=== PATIENT | female | born 1985 | race Caucasian/White ===

== ENCOUNTER 2020-05-20 10:01 | Emergency (ER) | payer MEDICAID, SELFPAY ==
--- NOTE | 2020-05-20 10:12 | XRR_ITS ---
PROCEDURE INFORMATION: Exam: XR Left Ankle Exam date and time: 05/20/2020 10:48 AM Age: 35 years old Clinical indication: Injury or trauma; Fall; Blunt trauma; Ankle; Bilateral; Injury date: 05/19/20; Additional info: Pain TECHNIQUE: Imaging protocol: XR Left ankle. Views: 3 or more views. COMPARISON: No relevant prior studies available. FINDINGS: Bones/joints: There is no evidence of acute fracture. No dislocation. There are plantar calcaneal spur and Achilles insertion small enthesophyte. Soft tissues: Normal. XR/XR ankle LT min 3V* [id number] IMPRESSION: No evidence of fracture or dislocation.
--- NOTE | 2020-05-20 10:12 | XRR_ITS ---
PROCEDURE INFORMATION: Exam: XR Left Foot Complete Exam date and time: 05/20/2020 10:46 AM Age: 35 years old Clinical indication: Injury or trauma; Fall; Blunt trauma; Foot; Bilateral; Injury date: 05/19/20; Additional info: Pain TECHNIQUE: Imaging protocol: XR Left foot. Views: 3 or more views. COMPARISON: No relevant prior studies available. FINDINGS: Bones/joints: There is no evidence of acute fracture. No dislocation. Small plantar calcaneal spur. Soft tissues: Small Achilles insertion enthesophyte. XR/XR foot LT min 3V* [id number] IMPRESSION: No evidence of fracture or dislocation.
[2020-05-20 10:15] VITALS: BP 131/82; PULSE 117; RESP 16; TEMP 37.1; O2SAT 100; BMI 26.6
--- NOTE | 2020-05-20 10:19 | CTR_ITS ---
PROCEDURE INFORMATION: Exam: CT Head Without Contrast Exam date and time: 05/20/2020 10:32 AM Age: 35 years old Clinical indication: Injury or trauma; Fall; Blunt trauma (contusions or hematomas); Injury date: 05/19/20; Additional info: Fall, closed head injury with loc TECHNIQUE: Imaging protocol: Computed tomography of the head without contrast. Radiation optimization: All CT scans at this facility use at least one of these dose optimization techniques: automated exposure control; mA and/or kV adjustment per patient size (includes targeted exams where dose is matched to clinical indication); or iterative reconstruction. COMPARISON: No relevant prior studies available. RADIATION DOSE METRICS: Total DLP (mGy-cm): 851.58 FINDINGS: Brain: There is no acute intracranial hemorrhage. No extra-axial fluid collection. No evidence of acute infarct. Salazar white differentiation is intact. There is no evidence of mass. There is no mass effect or midline shift. Cerebral ventricles: No ventriculomegaly. Bones/joints: No acute fracture. Paranasal sinuses: Visualized sinuses are unremarkable. No fluid levels. Mastoid air cells: No significant mastoid effusion. Soft tissues: Unremarkable as visualized. CT/CT head wo con* [id number] IMPRESSION: No evidence of acute intracranial abnormality. No acute hemorrhage. No evidence of acute infarct or mass. Radiation Dose CTDIVOL = (mGy): DLP = 851.58 (mGy-cm)
--- NOTE | 2020-05-20 10:22 | ED_ITS ---
HPI - Fall General: Chief Complaint: Fall Stated Complaint: Fall/Left foot injury Time Seen by Provider: 05/20/20 10:13 History of Present Illness: HPI Narrative: 35-year-old female presents after a fall. Initially, left ankle pain she also mention when I came to the room that she had hit the right side of her head. She states she was drinking last night she had a loss of consciousness. She has no active bleeding now. No vomiting. She is not on any anticoagulants. MD complaint: fall Onset (ago): hour(s) Fall from: from height (distance) (Was standing on a wall) Place fall occurred: home Loss of consciousness: Yes Prolonged down time: no Symptoms prior to fall: other (Patient reports she was intoxicated) Context: alcohol use Location of injury: head Location of injury - extremities: Left: ankle and foot Associated symptoms-after fall: Denies abdominal pain, chest pain, confusion, difficulty walking, headache(s), hematuria, lightheadedness, neck pain, numbness, short of breath, vertigo or weakness Review of Systems Const: Denies: fever(s), chills, body aches, change in appetite, fatigue or malaise ENMT: Denies: throat pain, ear or mastoid pain, nasal discharge or nasal congestion Card: Denies: chest pain or lightheadedness Resp: Denies: dyspnea, productive cough or non-productive cough GI: Denies: abdominal pain : Denies: hematuria Musc: Denies: neck pain Skin/Breast: Denies: rash or pruritus Neuro: Denies: headache(s), difficulty walking, vertigo or confusion FORMERLY [facility], [facility] ED Female Reproductive History: Date of last menstrual period: 04/21/20 Physical Exam Const: COMMON NORMALS: no acute distress GENERAL APPEARANCE: cooperative and comfortable ORIENTATION/CONSCIOUSNESS: Yes awake, Yes oriented to person, Yes oriented to place and Yes oriented to time HENMT: COMMON NORMALS: normocephalic, atraumatic, hearing grossly normal bilaterally, external ears normal, EAC's normal, TM's normal bilaterally, Normal nasal mucous membranes and turbinates present, moist oral mucous membranes and oropharynx normal HEAD & SCALP: normocephalic and atraumatic NOSE: Normal nasal mucous membranes and turbinates present EXTERNAL EAR: Yes external ears normal EXTERNAL AUDITORY CANAL: EAC's normal TYMPANIC MEMBRANE: TM's normal bilaterally OTHER: Examination of the right parietal area there is a few small smudges of blood on the scalp but I cannot find any open wounds any active wounds any caked blood or sign of significant laceration in that region. Repeat exam on closer exam they appear to actually be very small abrasions. I cannot find any lacerations in that region even after having her remove her hair tie and looking further out from where the small abrasions are. Eye: COMMON NORMALS: Equal, round and reactive pupils present, EOMs intact bilaterally, conjunctivae normal and no scleral icterus CONJUNCTIVA: Yes conjunctivae normal PUPIL: Yes Equal, round and reactive pupils present Neck/C-Spine: COMMON NORMALS: full ROM, no lymphadenopathy, supple and no JVD Resp: COMMON NORMALS: normal respiratory effort, No retractions, No use of accessory muscles and clear to auscultation bilaterally AUSCULTATION: clear to auscultation bilaterally Cardio: COMMON NORMALS: no JVD, regular rate, regular rhythm and No murmurs present (Cardio) RATE: regular rate RHYTHM: regular rhythm GI: COMMON NORMALS: Soft to palpation and No hepatosplenomegaly present AUSCULTATION: Yes normoactive bowel sounds PALPATION: Yes Soft to palpation, No Tenderness to palpation present (GI), No Guarding due to palpation present (GI) and Yes No hepatosplenomegaly present Extremity: COMMON NORMALS: normal to inspection, capillary refill normal, no clubbing, cyanosis or edema, no calf tenderness and no pedal edema NARRATIVE EXTREMITY EXAM: No significant swelling of the left ankle or foot. Palpation over the right greater trochanter is mildly tender patient is able to flex extend internally externally rotated the right hip without significant pain. Neuro: SENSORIUM/ORIENTATION: Yes oriented to person, Yes oriented to place and Yes oriented to time Skin: COMMON NORMALS: no rashes or lesions noted GENERAL SKIN EXAM: no rashes or lesions noted Course Vital Signs: Vital signs: Vital Signs Temperature 98.7 F 05/20/20 10:15 Pulse Rate 117 H 05/20/20 10:15 Respiratory Rate 18 05/20/20 11:02 Blood Pressure 131/82 05/20/20 10:15 Pulse Oximetry 100 05/20/20 10:15 MDM - Fall MDM Narrative: Medical decision making narrative: CT head is negative. Cannot clear C-spine by clinical exam. X-rays the ankle and foot did not show any acute fracture. We will go ahead and discharge the patient home Tylenol as needed. She should avoid NSAIDs because of her history of previous gastric bypass surgery. If pain persists in her foot or ankle she can follow-up with primary care for possibility of further advanced imaging until then wrap ice elevate nonweightbearing can resume weightbearing as tolerated Lab Data: Labs: Lab Results 05/20/20 05/20/20 05/20/20 Range/Units 10:29 10:40 10:40 WBC 8.7 (4.0-10.0) 10^3/ uL RBC 4.07 L (4.1-5.3) 10^6/u L Hgb 12.6 (11.5-15.3) g/dL Hct 39.6 (37.0-47.0) % MCV 97.3 (81-99) fL MCH 31.0 (28.0-34.0) pg MCHC 31.8 (30.0-36.0) g/dL RDW 13.9 (12.1-15.1) % Plt Count 291 (130-400) 10^3/c mm MPV 10.5 H (7.4-10.4) fL Neut % (Auto) 70.0 % Lymph % (Auto) 24.3 % [place] % (Auto) 4.3 % Eos % (Auto) 0.5 % Baso % (Auto) 0.7 % Neut # (Auto) 6.08 (1.8-7.7) 10^3/u L Lymph # (Auto) 2.1 (0.8-4.8) 10^3/u L [place] # (Auto) 0.4 (0.2-0.9) 10^3/u L Eos # (Auto) 0.0 (0.0-0.8) 10^3/u L Baso # (Auto) 0.1 (0.0-0.1) 10^3/u L Nucleated RBC % (a uto) 0 % Nucleated RBCs # 0.0 /100WBC Sodium 138 (136-145) mmol/L Potassium 3.8 (3.5-5.1) mmol/L Chloride 101 (98-107) mmol/L Carbon Dioxide 22 (22-29) mmol/L Anion Gap 18.8 (5-19) BUN 17 (6-20) mg/dL Creatinine 0.7 (0.5-0.9) mg/dL GFR Calculation 94.2 (90-130) mL/min Glucose 85 (65-115) mg/dL Calculated Osmolal ity 287 (285-295) mOsm/k g Calcium 8.9 (8.5-10.5) mg/dL Total Bilirubin 0.6 (0.15-1.2) mg/dL AST 79 H (0-32) U/L ALT 82 H (0-33) U/L Alkaline Phosphata se 90 (35-105) IU/L Total Protein 6.7 (6.6-8.7) g/dL Albumin 4.2 (3.5-5.2) g/dL Globulin 2.5 (1.3-4.6) g/dL Urine Color Yellow (Yellow) Urine Appearance Sl hazy (CLEAR) Urine pH 5 (5-7) Ur Specific Gravit y 1.020 (1.005-1.030) Urine Protein Trace (Negative) Urine Glucose (UA) Norm (Normal) Urine Ketones 1+ H (Negative) Urine Blood Neg (Negative) Urine Nitrate Negative (Negative) Urine Bilirubin Neg (Negative) Urine Urobilinogen Norm (Negative) mg/dL Ur Leukocyte Rachel ase Negative (Negative) Urine RBC 0-4 H (0-2) /hpf Urine WBC 5-10 H (0-5) /hpf Ur Squamous Epith Cells 5-10 H (0-5) /hpf Amorphous Sediment Not Reportable Urine Bacteria 2+ H (NONE) /hpf Urine Mucus Trace /hpf Discharge Plan Discharge Patient Disposition: Home Clinical Impression: Concussion with loss of consciousness, Fall Condition: Stable Discharge Orders: Discharge Order (Routine); Ordered 05/20/20 Ordered By: Kali Mendez Discharge Diet: Usual diet Discharge Activity: Increase activity as tolerated Coding Level of Care Code ED Kitchen Assistant for Linda Fwd Exam Comprehensive
[2020-05-20 10:46] LABS: Basophils # 0.1 10^3/uL (0.0-0.1); Basophils % 0.7 %; Eosinophils % 0.5 %; Hematocrit 39.6 % (37.0-47.0); Hemoglobin 12.6 g/dL (11.5-15.3); Lymphocytes # 2.1 10^3/uL (0.8-4.8); Lymphocytes % 24.3 %; Mean Corpuscular HGB Conc 31.8 g/dL (30.0-36.0); Mean Corpuscular Volume 97.3 fL (81-99); Mean Platelet Volume 10.5 fL (7.4-10.4); Monocytes # 0.4 10^3/uL (0.2-0.9); Monocytes % 4.3 %; Neutrophils # 6.08 10^3/uL (1.8-7.7); Nucleated Red Blood Cells % 0 %; Platelet Count 291 10^3/cmm (130-400); Red Blood Count 4.07 10^6/uL (4.1-5.3); Red Cell Distribution Width 13.9 % (12.1-15.1); White Blood Count 8.7 10^3/uL (4.0-10.0)
[2020-05-20 11:02] VITALS: RESP 18
[2020-05-20 11:03] LABS: Alanine Aminotransferase 82 U/L (0-33); Albumin Level 4.2 g/dL (3.5-5.2); Alkaline Phosphatase 90 IU/L (35-105); Anion Gap 18.8 (5-19); Aspartate Amino Transferase 79 U/L (0-32); Blood Urea Nitrogen 17 mg/dL (6-20); Calcium 8.9 mg/dL (8.5-10.5); Carbon Dioxide 22 mmol/L (22-29); Chloride 101 mmol/L (98-107); Globulin 2.5 g/dL (1.3-4.6); Glomerular Filtration Rate 94.2 mL/min (90-130); Glucose 85 mg/dL (65-115); Osmolality Calculated 287 mOsm/kg (285-295); Potassium 3.8 mmol/L (3.5-5.1); Sodium 138 mmol/L (136-145); Total Bilirubin 0.6 mg/dL (0.15-1.2); Total Protein 6.7 g/dL (6.6-8.7)
[2020-05-20 11:17] LABS: Add Urine Microscopic? YES; Bilirubin Urine Neg (Negative); Blood Urine Neg (Negative); Glucose Urine UA Norm (Normal); Ketones Urine 1+ (Negative); Leukocyte Esterase Urine Negative (Negative); Nitrate Urine Negative (Negative); Protein Urine Trace (Negative); Urine Appearance SL Hazy (CLEAR); Urine Color Yellow (Yellow); Urobilinogen Urine Norm (Negative); pH Urine 5 (5-7)
[2020-05-20 11:19] LABS: Bacteria Urine 2+ /hpf; RBC Urine 0-4 /hpf (0-2)
[2020-05-20 11:20] LABS: Add Urine Culture? No; Mucus Urine TRACE /hpf
[2020-05-20 11:33] VITALS: BP 128/83; PULSE 110; RESP 18; O2SAT 100
== END 2020-05-20 11:31 | disposition home or self-care (01) ==
PROVIDERS: Emergency Provider Family Medicine
DX: S06.0X0A Concussion without loss of consciousness, initial encounter (principal); W19.XXXA Unspecified fall, initial encounter
CPT/HCPCS: 12345; 70450; 73610; 73630; 80053; 81001; 85025; 99282; 99283

== ENCOUNTER 2024-06-04 15:06 | Oncology outpatient (recurring) (ONCR) | payer BC, MEDICAID, SELFPAY | END 2024-06-04 23:59 | disposition home or self-care (01) | PROVIDERS: Visit Provider Internal Medicine Medical Oncology | DX: D50.8 Other iron deficiency anemias (principal); K91.2 Postsurgical malabsorption, not elsewhere classified; Z98.84 Bariatric surgery status | CPT/HCPCS: 99204 ==

== ENCOUNTER 2024-06-23 14:00 | Oncology outpatient (recurring) (ONCR) | payer BC, MEDICAID, SELFPAY ==
[2024-06-19] MEDS: sodium chloride 0.9% 250 ML 240 ML IV (16:09)
[2024-06-19] MEDS: iron sucrose 200 MG in sodium chloride 0.9% 50 ML 240 MG IV (16:11)
[2024-06-23] MEDS: sodium chloride 0.9% 250 ML 75 ML IV (15:31)
[2024-06-23] MEDS: iron sucrose 200 MG in sodium chloride 0.9% 50 ML 240 MG IV (15:31)
== END 2024-06-24 23:59 | disposition home or self-care (01) ==
PROVIDERS: PCP Registered Nurse; Visit Provider Internal Medicine Medical Oncology
DX: Z79.899 Other long term (current) drug therapy (principal); D50.9 Iron deficiency anemia, unspecified; Z53.9 Procedure and treatment not carried out, unspecified reason
CPT/HCPCS: 96365; J1756; J7050

== ENCOUNTER 2024-07-14 14:00 | Oncology outpatient (recurring) (ONCR) | payer BC, MEDICAID, SELFPAY ==
[2024-07-07 14:13] VITALS: BP 100/64; PULSE 86; RESP 16; TEMP 36.6; O2SAT 97
[2024-07-07] MEDS: iron sucrose 200 MG in sodium chloride 0.9% 50 ML 240 MG IV (14:17)
[2024-07-07 14:42] VITALS: BP 100/64; PULSE 89; RESP 16; TEMP 36.8; O2SAT 99
== END 2024-07-25 23:59 | disposition home or self-care (01) ==
PROVIDERS: PCP Registered Nurse; Visit Provider Internal Medicine Medical Oncology
DX: Z53.9 Procedure and treatment not carried out, unspecified reason
CPT/HCPCS: 96365; J1756

== ENCOUNTER 2024-08-04 14:00 | Oncology outpatient (recurring) (ONCR) | payer BC, MEDICAID, SELFPAY ==
[2024-07-28] MEDS: iron sucrose 200 MG in sodium chloride 0.9% 50 ML 240 MG IV (14:33)
[2024-07-28 15:22] VITALS: BP 107/67; PULSE 65; RESP 16; TEMP 37; O2SAT 100
[2024-08-04 14:05] VITALS: BP 114/74; PULSE 79; RESP 16; TEMP 36.7; O2SAT 99
[2024-08-04] MEDS: iron sucrose 200 MG in sodium chloride 0.9% 50 ML 240 MG IV (14:13)
== END 2024-08-22 23:59 | disposition home or self-care (01) ==
PROVIDERS: PCP Registered Nurse; Visit Provider Internal Medicine Medical Oncology
DX: Z53.9 Procedure and treatment not carried out, unspecified reason; D50.9 Iron deficiency anemia, unspecified; Z79.899 Other long term (current) drug therapy
CPT/HCPCS: 96365; J1756

== ENCOUNTER 2024-09-08 12:47 | Oncology outpatient (recurring) (ONCR) | payer BC, MEDICAID, SELFPAY ==
[2024-09-08 13:23] LABS: Basophils % 0.5 %; Eosinophils # 0.2 10^3/uL (0.0-0.8); Eosinophils % 4.6 %; Lymphocytes # 1.8 10^3/uL (0.8-4.8); Lymphocytes % 49.1 %; Mean Corpuscular Hemoglobin 26.6 pg (27-33); Mean Corpuscular Volume 88.8 fl (85-98); Monocytes # 0.3 10^3/uL (0.2-0.9); Monocytes % 7.2 %; Neutrophils # 1.44 10^3/uL (1.8-7.7); Neutrophils % 38.6 %; Nucleated Red Blood Cells % 0 %; Platelet Count 280 10^3/cmm (157-399); Red Blood Count 3.83 10^6/uL (3.85-5.65); Red Cell Distribution Width 20.5 % (12.1-15.1); White Blood Count 3.73 10^3/uL (3.29-11.43)
[2024-09-08 13:38] LABS: Alanine Aminotransferase 21 U/L (0-33); Albumin Level 4.1 g/dL (3.5-5.2); Alkaline Phosphatase 100 U/L (35-105); Anion Gap 13.2 (5-19); Aspartate Amino Transferase 29 U/L (0-32); Blood Urea Nitrogen 14 mg/dL (6-20); Calcium 8.7 mg/dL (8.5-10.5); Carbon Dioxide 31 mmol/L (22-29); Chloride 100 mmol/L (98-107); Ferritin 13 ng/mL (15-150); Globulin 2.4 g/dL (1.3-4.6); Glomerular Filtration Rate 92.2 mL/min (90-130); Glucose 90 mg/dL (65-115); Iron 22 ug/dL (37-145); Osmolality Calculated 290 mOsm/kg (285-295); Percent Saturation 4.7 % (20-50); Potassium 4.2 mmol/L (3.5-5.1); Sodium 140 mmol/L (136-145); Total Bilirubin 0.2 mg/dL (0.15-1.2); Total Iron Binding Capacity 462 mcg/dl; Total Protein 6.5 g/dL (6.6-8.7); Unsaturated Iron Binding 440 ug/dL (112-347)
== END 2024-09-22 23:59 | disposition home or self-care (01) ==
PROVIDERS: PCP Registered Nurse; Visit Provider Internal Medicine Medical Oncology
DX: D50.9 Iron deficiency anemia, unspecified (principal)
CPT/HCPCS: 36415; 80053; 82728; 83540; 83550; 85025

== ENCOUNTER 2024-10-14 13:00 | Oncology outpatient (recurring) (ONCR) | payer BC, MEDICAID, SELFPAY ==
[2024-09-23] MEDS: iron sucrose 200 MG in sodium chloride 0.9% 50 ML 240 MG IV (13:36)
[2024-09-23 14:18] VITALS: BP 105/72; PULSE 66; RESP 16; TEMP 37.1; O2SAT 98
[2024-09-29] MEDS: iron sucrose 200 MG in sodium chloride 0.9% 50 ML 240 MG IV (13:05)
[2024-10-06 13:11] VITALS: BP 114/71; PULSE 70; RESP 16; TEMP 36.7; O2SAT 99
[2024-10-06] MEDS: iron sucrose 200 MG in sodium chloride 0.9% 50 ML 240 MG IV (13:33)
[2024-10-06 14:01] VITALS: BP 119/81; PULSE 71; RESP 17; TEMP 37; O2SAT 99
[2024-10-14] MEDS: iron sucrose 200 MG in sodium chloride 0.9% 50 ML 240 MG IV (13:24)
[2024-10-14 14:07] VITALS: BP 98/54; PULSE 58; RESP 16; TEMP 36.1; O2SAT 96
== END 2024-10-22 23:59 | disposition home or self-care (01) ==
PROVIDERS: PCP Registered Nurse; Visit Provider Internal Medicine
DX: Z53.9 Procedure and treatment not carried out, unspecified reason (principal); D50.9 Iron deficiency anemia, unspecified; Z79.899 Other long term (current) drug therapy
CPT/HCPCS: 96365; J1756

== ENCOUNTER 2024-10-28 14:33 | Oncology outpatient (recurring) (ONCR) | payer BC, MEDICAID, SELFPAY ==
[2024-10-28] MEDS: iron sucrose 200 MG in sodium chloride 0.9% 50 ML 240 MG IV (15:39)
[2024-10-28] MEDS: sodium chloride 0.9% 250 ML 75 ML IV (15:39)
== END 2024-11-22 23:59 | disposition home or self-care (01) ==
PROVIDERS: PCP Registered Nurse; Visit Provider Internal Medicine
DX: D50.9 Iron deficiency anemia, unspecified (principal); Z79.899 Other long term (current) drug therapy
CPT/HCPCS: 96365; J1756; J7050

== ENCOUNTER 2024-12-02 15:06 | Oncology outpatient (recurring) (ONCR) | payer BC, MEDICAID, SELFPAY ==
[2024-12-02 15:22] LABS: Basophils % 0.5 %; Eosinophils # 0.2 10^3/uL (0.0-0.8); Eosinophils % 3.8 %; Hematocrit 36.9 % (36-47); Lymphocytes # 1.6 10^3/uL (0.8-4.8); Lymphocytes % 37.3 %; Mean Corpuscular HGB Conc 31.4 g/dL (30-55); Mean Corpuscular Hemoglobin 28.4 pg (27-33); Mean Corpuscular Volume 90.4 fl (85-98); Mean Platelet Volume 9.9 fL (7.4-10.4); Monocytes # 0.3 10^3/uL (0.2-0.9); Monocytes % 6.3 %; Neutrophils # 2.16 10^3/uL (1.8-7.7); Neutrophils % 51.9 %; Nucleated Red Blood Cells % 0 %; Platelet Count 283 10^3/cmm (157-399); Red Blood Count 4.08 10^6/uL (3.85-5.65); Red Cell Distribution Width 16.1 % (12.1-15.1); White Blood Count 4.16 10^3/uL (3.29-11.43)
[2024-12-02 15:46] LABS: Alanine Aminotransferase 22 U/L (0-33); Albumin Level 4.1 g/dL (3.5-5.2); Alkaline Phosphatase 88 U/L (35-105); Anion Gap 14.7 (5-19); Aspartate Amino Transferase 24 U/L (0-32); Blood Urea Nitrogen 7 mg/dL (6-20); Calcium 8.9 mg/dL (8.5-10.5); Carbon Dioxide 29 mmol/L (22-29); Chloride 102 mmol/L (98-107); Globulin 2.5 g/dL (1.3-4.6); Glucose 79 mg/dL (65-115); Osmolality Calculated 289 mOsm/kg (285-295); Potassium 4.7 mmol/L (3.5-5.1); Sodium 141 mmol/L (136-145); Total Bilirubin 0.2 mg/dL (0.15-1.2); Total Protein 6.6 g/dL (6.6-8.7)
== END 2024-12-22 23:59 | disposition home or self-care (01) ==
PROVIDERS: PCP Registered Nurse; Visit Provider Internal Medicine Medical Oncology
DX: D50.9 Iron deficiency anemia, unspecified (principal); Z98.84 Bariatric surgery status
CPT/HCPCS: 36415; 80053; 85025

== ENCOUNTER 2025-02-09 07:53 | Oncology outpatient (recurring) (ONCR) | payer BC, MEDICAID, SELFPAY ==
[2025-01-27 15:12] LABS: Hematocrit 35.4 % (36-47); Hemoglobin 11.50 g/dL (11.27-16.99); Mean Corpuscular HGB Conc 32.5 g/dL (30-55); Mean Corpuscular Hemoglobin 28.5 pg (27-33); Mean Corpuscular Volume 87.6 fl (85-98); Nucleated Red Blood Cells % 0 %; Platelet Count 237 10^3/cmm (157-399); Red Blood Count 4.04 10^6/uL (3.85-5.65); White Blood Count 3.83 10^3/uL (3.29-11.43)
[2025-01-27 15:28] LABS: Alanine Aminotransferase 24 U/L (0-33); Albumin Level 4.2 g/dL (3.5-5.2); Alkaline Phosphatase 97 U/L (35-105); Anion Gap 12.6 (5-19); Aspartate Amino Transferase 31 U/L (0-32); Blood Urea Nitrogen 5 mg/dL (6-20); Calcium 8.8 mg/dL (8.5-10.5); Carbon Dioxide 31 mmol/L (22-29); Chloride 97 mmol/L (98-107); Creatinine Clr Calc Pharmacy 87.3020; Ferritin 44 ng/mL (15-150); Globulin 2.3 g/dL (1.3-4.6); Glucose 91 mg/dL (65-115); Iron 127 ug/dL (37-145); Osmolality Calculated 279 mOsm/kg (285-295); Potassium 4.6 mmol/L (3.5-5.1); Sodium 136 mmol/L (136-145); Total Iron Binding Capacity 338 mcg/dl; Total Protein 6.5 g/dL (6.6-8.7); Unsaturated Iron Binding 211 ug/dL (112-347)
[2025-02-09 08:17] VITALS: BP 104/72; PULSE 74; RESP 16; TEMP 36.6; O2SAT 99
[2025-02-09] MEDS: diphenhydrAMINE 50 mg/mL SDV 1mL 25 MG IVP (08:30)
[2025-02-09] MEDS: iron dextran 1,200 MG in sodium chloride 0.9% 1,000 ML 250.75 MG IV (10:36)
[2025-02-09 14:55] VITALS: BP 102/70; PULSE 88; RESP 16; TEMP 36.1; O2SAT 99
== END 2025-02-22 23:59 | disposition home or self-care (01) ==
PROVIDERS: PCP Registered Nurse; Visit Provider Internal Medicine Medical Oncology
DX: D50.9 Iron deficiency anemia, unspecified (principal); Z79.899 Other long term (current) drug therapy
CPT/HCPCS: 36415; 80053; 82728; 83540; 83550; 85025; 96365; 96366; 96375; J1200; J1750; J7030; J7040

== ENCOUNTER 2025-04-13 13:34 | Oncology outpatient (recurring) (ONCR) | payer BC, MEDICAID, SELFPAY ==
[2025-04-13 13:58] LABS: Hematocrit 39.2 % (36-47); Hemoglobin 13.00 g/dL (11.27-16.99); Mean Corpuscular HGB Conc 33.2 g/dL (30-55); Mean Corpuscular Hemoglobin 30.1 pg (27-33); Mean Corpuscular Volume 90.7 fl (85-98); Nucleated Red Blood Cells % 0 %; Platelet Count 254 10^3/cmm (157-399); Red Blood Count 4.32 10^6/uL (3.85-5.65); White Blood Count 3.76 10^3/uL (3.29-11.43)
[2025-04-13 14:17] LABS: Alanine Aminotransferase 82 U/L (0-33); Albumin Level 4.2 g/dL (3.5-5.2); Alkaline Phosphatase 115 U/L (35-105); Anion Gap 11.7 (5-19); Aspartate Amino Transferase 77 U/L (0-32); Blood Urea Nitrogen 15 mg/dL (6-20); Calcium 8.6 mg/dL (8.5-10.5); Carbon Dioxide 27 mmol/L (22-29); Chloride 98 mmol/L (98-107); Creatinine Clr Calc Pharmacy 77.9290; Ferritin 235 ng/mL (15-150); Globulin 2.6 g/dL (1.3-4.6); Glucose 95 mg/dL (65-115); Iron 99 ug/dL (37-145); Osmolality Calculated 277 mOsm/kg (285-295); Potassium 3.7 mmol/L (3.5-5.1); Sodium 133 mmol/L (136-145); Total Iron Binding Capacity 255 mcg/dl; Total Protein 6.8 g/dL (6.6-8.7); Unsaturated Iron Binding 156 ug/dL (112-347)
== END 2025-04-24 23:59 | disposition home or self-care (01) ==
PROVIDERS: Nurse Practitioner; PCP Registered Nurse; Visit Provider Internal Medicine Medical Oncology
DX: D50.9 Iron deficiency anemia, unspecified (principal)
CPT/HCPCS: 36415; 80053; 82728; 83540; 83550; 85025